=== PATIENT | female | born 2000 | race Caucasian/White ===

== ENCOUNTER 2021-01-28 14:45 | Outpatient (RCR) | payer OTHER | END 2021-03-04 13:35 | disposition home or self-care (01) | LOC: WSOT 14:45 | DX: S52.351A Displaced comminuted fracture of shaft of radius, right arm, initial encounter for closed fracture (principal) ==

== ENCOUNTER 2021-03-25 05:28 | Day surgery (SDC) | payer OTHER ==
[~2021-03-25] VITALS: Ht 165.1 cm; Wt 77.3 kg
[2021-03-25 06:07] VITALS: BP 122/69; PULSE 74; TEMP 97.8
[2021-03-25] MEDS ORDERED: TYLENOL 8 HR PO (06:17)
[2021-03-25 08:23] VITALS: TEMP 97.2
[2021-03-25 08:37] VITALS: BP 116/63; PULSE 67
--- NOTE | 2021-03-25 08:37 | NUR ---
Patient returns to room 8 per cart from PACU accompanied by Terri DAVIS and patient is awake and alert. IV fluids infusing and site is free of redness. Temp 97.8 and room air sats 100%. Denies pain or nausea. Spouse in room. Patient taking fluids without nausea and denies pain. Call light in reach and talking with spouse.
[2021-03-25 08:52] VITALS: BP 120/56; PULSE 53
--- NOTE | 2021-03-25 08:52 | NUR ---
Eating muffin and drinking orange juice. Assisted up to the bathroom and gait steady. IV converted to INT.
[2021-03-25 09:07] VITALS: BP 110/59; PULSE 62
--- NOTE | 2021-03-25 09:07 | NUR ---
INT needle discontinued and patient is dressing self.
--- NOTE | 2021-03-25 09:15 | NUR ---
Patient given dismissal instructions and voices understanding of these. Provided follow up appointment date and time.
--- NOTE | 2021-03-25 09:17 | NUR ---
Patient dismissed to home driven by spouse and taken to the front door per wheelchair and assisted into vehicle with dismissal instructions in hand.
[2021-03-25 09:25] VITALS: BP 121/81; PULSE 72
--- NOTE | 2021-03-25 09:25 | NUR ---
Patient returns to room 8 per cart from PACU accompanied by Terri DAVIS and patient is awake and alert. IV fluids infusing and site is free of redness. Temp 97.7. Siderails up x2 and call light in reach. Spouse in room. Denies pain or nausea. Sipping on water.
--- NOTE | 2021-03-25 10:43 | NUR ---
Initial visit; Patient thanked [employer] for looking in on her following her procedure and for keeping her in [employer]'s prayers.
== END 2021-03-25 09:17 | disposition home or self-care (01) ==
LOC: SDCO 05:28
DX: N39.41 Urge incontinence (principal); R35.0 Frequency of micturition; R31.0 Gross hematuria; R10.2 Pelvic and perineal pain; G89.29 Other chronic pain; E28.2 Polycystic ovarian syndrome; F41.9 Anxiety disorder, unspecified; F32.9 Major depressive disorder, single episode, unspecified; F43.10 Post-traumatic stress disorder, unspecified; F17.290 Nicotine dependence, other tobacco product, uncomplicated; Z90.89 Acquired absence of other organs; Z20.822 Contact with and (suspected) exposure to COVID-19; Z79.899 Other long term (current) drug therapy
CPT/HCPCS: J7120; Q9967